=== PATIENT | male | born 1955 | race Caucasian/White ===

== ENCOUNTER 2018-05-22 17:16 | Emergency (ER) | payer OTHER ==
[2018-05-22 17:51] LABS: #Basophils 0.1 thou/uL (0.0-0.2); #Eosinphils 0.3 thou/uL (0.0-0.7); #Lymphocytes 2.8 thou/uL (1.20-3.40); #Monocytes 1.1 thou/uL (0.11-0.59); #Neutrophils 4.4 thou/uL (1.40-6.50); %Basophils 1.3 % (0.0-1.0); %Eosinophils 3.7 % (0.0-10.0); %Monocytes 12.4 % (0.0-10.0); %Neutrophils 50.5 % (42.0-75.0); Hemoglobin 14.9 g/dL (14.0-18.0); Mean Corpuscular HGB CONC 36.2 g/dL (32.0-36.0); Mean Corpuscular Volume 91.3 fL (78.0-98.0); Platelet Count 265 thou/uL (130-400); RBC Distribution Width 12.3 % (11.5-14.5); Red Blood Cell (RBC) Count 4.51 mill/uL (4.70-6.10); White Blood Cell (WBC) Count 8.7 thou/uL (4.8-10.8)
[2018-05-22] MEDS ORDERED: Thiamine HCl 200 MG/2 ML VIAL ONE (17:52)
[2018-05-22] MEDS ORDERED: Magnesium Sulfate 2 GM/100 ML BAG ONE ×2 (18:01→18:31)
--- NOTE | 2018-05-22 18:05 | CT ---
CT BRAIN WITHOUT IV CONTRAST: HISTORY: A 63-year-old male with a history of syncope. FINDINGS: There is no focal mass or midline shift. No intraaxial or extraaxial hemorrhage. There are scattere d sinus mucosal changes involving the maxillary, ethmoid, and sphenoid sinuses. The mastoids are hugo ar. IMPRESSION: Sinus mucosal disease. No significant acute process in the brain. No mass or bleed. POS: [facility]
[2018-05-22 18:11] LABS: ALT (SGPT) 39 U/L (8-55); AST (SGOT) 27 U/L (5-34); Albumin 4.4 g/dL (3.4-4.8); Alcohol 67 mg/dL (Less than 10); Alkaline Phosphatase 66 U/L (40-150); Anion Gap 17 mmol/L (10-20); BUN (Urea Nitrogen) 14 mg/dL (8.4-25.7); Bilirubin, Total 0.4 mg/dL (0.2-1.2); Calc. Creatinine Clearance 0 mL/min (70-130); Calcium 9.8 mg/dL (7.8-10.44); Carbon Dioxide 25 mmol/L (23-31); Chloride 98 mmol/L (98-107); Estimated GFR-MDRD 66; Globulin 3.2 g/dL (2.4-3.5); Glucose 81 mg/dL (80-115); Potassium 3.8 mmol/L (3.5-5.1); Protein, Total 7.6 g/dL (5.8-8.1); Sodium 136 mmol/L (136-145)
[2018-05-22 18:13] LABS: CKMB 3.8 ng/mL (0-6.6); Troponin I 0.107 ng/mL (< 0.028)
[2018-05-22] MEDS ORDERED: Enoxaparin Sodium 100 MG/ML SYRINGE ONE (18:19)
[2018-05-22] MEDS ORDERED: Lorazepam 2 MG/ML VIAL ONE (18:41)
--- NOTE | 2018-05-22 19:16 | RAD ---
CHEST ONE VIEW: HISTORY: Syncope. Ventricular tachycardia. COMPARISON: 02/09/2014 FINDINGS: Portable upright chest shows a normal cardiac silhouette. The pulmonary vessels and hilum are normal . No masses or consolidation. No pneumothorax or osseous abnormalities. IMPRESSION: No acute cardiopulmonary process. POS: [facility]
== END 2018-05-22 19:05 | disposition short-term general hospital (02) ==
LOC: BURERS 17:16
DX: I47.2 Ventricular tachycardia (principal); I45.81 Long QT syndrome; F10.10 Alcohol abuse, uncomplicated; I10 Essential (primary) hypertension; F17.200 Nicotine dependence, unspecified, uncomplicated; F41.9 Anxiety disorder, unspecified; F17.210 Nicotine dependence, cigarettes, uncomplicated; Z79.899 Other long term (current) drug therapy
CPT/HCPCS: 70450; 71045; 80053; 80307; 82553; 84484; 85025; 85379; 93005; 94760; 96365; 96366; 96367; 96372; 96375; J1650; J2060; J3411; J3475

== ENCOUNTER 2018-06-08 01:15 | Emergency (ER) | payer OTHER ==
[2018-06-08] MEDS ORDERED: Furosemide 40 MG/4 ML VIAL ONE (01:36)
[2018-06-08 01:45] LABS: #Basophils 0.2 thou/uL (0.0-0.2); #Eosinphils 0.3 thou/uL (0.0-0.7); #Lymphocytes 1.6 thou/uL (1.20-3.40); #Monocytes 1.2 thou/uL (0.11-0.59); %Basophils 1.7 % (0.0-1.0); %Lymphocytes 11.9 % (21.0-51.0); %Monocytes 9.2 % (0.0-10.0); %Neutrophils 75.1 % (42.0-75.0); Hemoglobin 10.2 g/dL (14.0-18.0); Mean Corpuscular HGB CONC 35.1 g/dL (32.0-36.0); Mean Corpuscular Hemoglobin 32.2 pg (27.0-31.0); Mean Corpuscular Volume 91.6 fL (78.0-98.0); Mean Platelet Volume 7.5 fL (7.4-10.4); Platelet Count 473 thou/uL (130-400); RBC Distribution Width 12.6 % (11.5-14.5); Red Blood Cell (RBC) Count 3.17 mill/uL (4.70-6.10); White Blood Cell (WBC) Count 13.3 thou/uL (4.8-10.8)
[2018-06-08 01:56] LABS: INR-International Normal Ratio 1.3; Prothrombin Time 16.1 SEC (12.0-14.7)
[2018-06-08 01:57] LABS: ALT (SGPT) 35 U/L (8-55); AST (SGOT) 23 U/L (5-34); Albumin 3.8 g/dL (3.4-4.8); Alkaline Phosphatase 87 U/L (40-150); Anion Gap 12 mmol/L (10-20); BUN (Urea Nitrogen) 11 mg/dL (8.4-25.7); Bilirubin, Total 0.6 mg/dL (0.2-1.2); Calc. Creatinine Clearance 0 mL/min (70-130); Calcium 9.7 mg/dL (7.8-10.44); Carbon Dioxide 27 mmol/L (23-31); Chloride 99 mmol/L (98-107); Estimated GFR-MDRD 54; Globulin 3.2 g/dL (2.4-3.5); Glucose 116 mg/dL (80-115); Potassium 4.3 mmol/L (3.5-5.1); Sodium 134 mmol/L (136-145)
[2018-06-08 01:58] LABS: Digoxin 0.45 ng/mL (0.8-2.0)
[2018-06-08 02:17] LABS: CKMB 2.2 ng/mL (0-6.6)
--- NOTE | 2018-06-08 09:10 | RAD ---
PORTABLE CHEST: DATE: 06/08/2018. FINDINGS: An AP portable film at 0107 is compared with an 05/27/2018 study done at [facility]. Moderate cardiomegaly is still present. There is perhaps minor prominence of the upper lobe pulmonar y vessels, but no jessica pulmonary edema. No lobar consolidations or large effusions were seen There might be a small effusion on the left. The patient has had a CABG. IMPRESSION: Moderate cardiomegaly. Equivocal slight prominence of upper lobe vessels. POS: [facility]
== END 2018-06-08 01:50 | disposition short-term general hospital (02) ==
LOC: BURERS 01:15
DX: I31.3 Pericardial effusion (noninflammatory) (principal); I11.0 Hypertensive heart disease with heart failure; I50.9 Heart failure, unspecified; F17.210 Nicotine dependence, cigarettes, uncomplicated; Z79.82 Long term (current) use of aspirin; Z79.899 Other long term (current) drug therapy
CPT/HCPCS: 71045; 80053; 80162; 82553; 83880; 84484; 85025; 85610; 85730; 96374; J1940

== ENCOUNTER 2018-10-08 23:27 | Emergency (ER) | payer OTHER ==
[2018-10-08] MEDS ORDERED: Ibuprofen 200 MG TAB ONE (23:50)
[2018-10-09 00:04] LABS: Bilirubin Negative (Negative); Blood, Urine Large (Negative); Clarity Cloudy (Clear); Glucose, Urine (Dipstick) Negative (Negative); Leukocyte Small (Negative); Nitrite Negative (Negative); Protein, Urine (Dipstick) > or equal to 300 mg/dL (Neg-Trace); Specific Gravity, Urine 1.025 (1.005-1.030)
[2018-10-09 00:06] LABS: Bacteria/HPF 2+ HPF (None Seen); Other Casts/LPF 0-3 FINELY GRAN LPF (0-3 Hyaline); Squamous Epithelial 0-3 HPF (0-3)
[2018-10-09] MEDS ORDERED: cefTRIAXone\\ROCEPHIN 2 GM VIAL ONE (00:21)
[2018-10-09 00:35] LABS: ALT (SGPT) 34 U/L (8-55); AST (SGOT) 31 U/L (5-34); Albumin 3.7 g/dL (3.4-4.8); Alkaline Phosphatase 108 U/L (40-150); Anion Gap 18 mmol/L (10-20); BUN (Urea Nitrogen) 12 mg/dL (8.4-25.7); Bilirubin, Total 0.9 mg/dL (0.2-1.2); Calc. Creatinine Clearance 0 mL/min (70-130); Calcium 9.6 mg/dL (7.8-10.44); Carbon Dioxide 19 mmol/L (23-31); Chloride 97 mmol/L (98-107); Estimated GFR-MDRD 72; Globulin 3.3 g/dL (2.4-3.5); Glucose 129 mg/dL (80-115); Potassium 3.9 mmol/L (3.5-5.1); Sodium 130 mmol/L (136-145)
[2018-10-09 00:56] LABS: Band 36 % (5-11); Eosinophils 1 % (0-10); Hemoglobin 13.9 g/dL (14.0-18.0); Lymphocytes 7 % (21-51); MDiff Complete? YES; Mean Corpuscular Hemoglobin 30.3 pg (27.0-31.0); Mean Corpuscular Volume 91.9 fL (78.0-98.0); Mean Platelet Volume 10.3 fL (7.4-10.4); Monocytes 4 % (0-10); Neutrophil 51 % (42-75); Platelet Count 99 thou/uL (130-400); Platelet Morphology Comment Appears Decreased; RBC Distribution Width 13.9 % (11.5-14.5); RBC Morphology Normal; Red Blood Cell (RBC) Count 4.58 mill/uL (4.70-6.10); Toxic Granulation SLIGHT; Vacuoles SLIGHT; White Blood Cell (WBC) Count 6.3 thou/uL (4.8-10.8)
[2018-10-09 07:02] LABS: Lactic Acid 0.8 mmol/L (0.5-2.2)
--- NOTE | 2018-10-09 07:14 | RAD ---
PORTABLE CHEST: Date: 10/09/18 An AP portable film at 0011 hours is compared with a 06/18/18 study. FINDINGS: Mild cardiomegaly is present, actually a heart size smaller than before. There is no vascular congest ion. There is no infiltrate or other sign of pneumonia. No effusions present. IMPRESSION: No acute thoracic findings. POS: [facility]
== END 2018-10-09 08:45 | disposition short-term general hospital (02) ==
LOC: BURERS 23:27
DX: N39.8 Other specified disorders of urinary system (principal); I10 Essential (primary) hypertension; E78.5 Hyperlipidemia, unspecified; F17.210 Nicotine dependence, cigarettes, uncomplicated; Z79.82 Long term (current) use of aspirin; Z79.899 Other long term (current) drug therapy
CPT/HCPCS: 36415; 71045; 80053; 81003; 81015; 83605; 85025; 87040; 87086; 87804; 96365; 96366; 96375; J0696; J3370

== ENCOUNTER 2019-05-13 15:23 | Outpatient (CLI) | payer OTHER ==
[2019-05-13 22:07] LABS: Bilirubin Negative (Negative); Blood, Urine 1+ (Negative); Clarity Turbid (Clear); Glucose, Urine (Dipstick) Normal (Negative); Leukocyte 500 Leu/uL (Negative); Nitrite 2+ (Negative); Protein, Urine (Dipstick) 50 mg/dL (Neg-Trace); RBC/HPF 21-50 HPF (0-3); Squamous Epithelial 0-3 HPF (0-3); Urobilinogen Normal mg/dL (Less than 2); WBC/HPF Greater than 50 HPF (0-3)
[2019-05-13 22:34] LABS: Bacteria/HPF 4+ HPF (None Seen)
--- NOTE | 2019-05-14 07:34 | ULT ---
SCROTAL ULTRASOUND: 05/13/19 Ultrasonography of the scrotum was performed. Documentary images and worksheets were provided and re viewed. The testicles both appear normal with no sign of mass or other acute pathology. Right testicle measur es 3.5 x 2.6 x 3.4 cm and the left measures 4.2 x 2.4 x 3.3 cm. Blood flow is present in each. The major finding on this study is epididymal abnormalities. The right epididymis is quite large, ext remely inhomogeneous, and almost mass-like. I suspect it is infected. It measures 2.6 x 2.5 cm. Abund ant vascular flow is present. The left epididymis is also large, measuring 2.0 x 1.5 cm. It is also i nhomogeneous but less so than the right side. A 6 mm left epididymal cyst was noted. There is no subs tantial amount of fluid in the scrotum. IMPRESSION: 1. Normal testicles. 2. Marked enlargement of each epididymis, but particularly the right. It is extraordinarily inho mogeneous and almost mass-like. Epididymitis is the most likely diagnosis. I would treat him as such and then after a prolonged course of treatment consider a follow-up ultrasound and/or urological refe rral. 3. 6 mm left epididymal cyst. POS: HOME
== END 2019-05-13 15:24 | disposition home or self-care (01) ==
LOC: BURULT 15:23
PROVIDERS: ATTEND Family Medicine
DX: N50.811 Right testicular pain (principal); N50.3 Cyst of epididymis
CPT/HCPCS: 76870; 81001; 87077; 87086; 87186; 93976

== ENCOUNTER 2023-12-05 08:42 | Emergency (ER) | payer MEDICARE, OTHER ==
[2023-12-05 09:41] LABS: #Basophils 0.2 thou/uL (0.0-0.2); #Eosinphils 0.4 thou/uL (0.0-0.7); #Lymphocytes 2.2 thou/uL (1.20-3.40); #Monocytes 1.2 thou/uL (0.11-0.59); #Neutrophils 6.7 thou/uL (1.40-6.50); %Basophils 1.7 % (0.0-1.0); %Lymphocytes 20.4 % (21.0-51.0); %Monocytes 10.9 % (0.0-10.0); Hematocrit 39.6 % (42.0-52.0); Hemoglobin 14.3 g/dL (14.0-18.0); Mean Corpuscular HGB CONC 36.1 g/dL (32.0-36.0); Mean Corpuscular Hemoglobin 33.3 pg (27.0-31.0); Mean Platelet Volume 8.3 fL (7.4-10.4); Platelet Count 268 10x3/uL (130-400); RBC Distribution Width 12.2 % (11.5-14.5); Red Blood Cell (RBC) Count 4.31 mill/uL (4.70-6.10); White Blood Cell (WBC) Count 10.7 10x3/uL (4.8-10.8)
[2023-12-05 09:46] LABS: Prothrombin Time 13.3 sec (12.0-14.7)
[2023-12-05 09:57] LABS: ALT (SGPT) 33 U/L (8-55); AST (SGOT) 53 U/L (5-34); Albumin 4.2 g/dL (3.4-4.8); Alkaline Phosphatase 54 U/L (40-110); Anion Gap 18 mmol/L (10-20); BUN (Urea Nitrogen) 14 mg/dL (8.4-25.7); Bilirubin, Total 1.3 mg/dL (0.2-1.2); Calc. Creatinine Clearance 0 mL/min (70-130); Calcium 9.4 mg/dL (7.8-10.44); Carbon Dioxide 23 mmol/L (23-31); Chloride 86 mmol/L (98-107); Estimated GFR 43; Glucose 118 mg/dL (80-115); Potassium 2.9 mmol/L (3.5-5.1); Protein, Total 7.2 g/dL (5.8-8.1); Sodium 124 mmol/L (136-145)
[2023-12-05 10:04] LABS: Troponin I 0.036 ng/mL (< 0.028)
[2023-12-05] MEDS ORDERED: Potassium Chloride 20 MEQ TAB ONE (10:08)
[2023-12-05] MEDS ORDERED: Aspirin Chewable 81 MG TAB ONE (10:08)
[2023-12-05 10:18] LABS: Magnesium 1.5 mg/dL (1.6-2.6)
[2023-12-05] MEDS ORDERED: Magnesium Oxide 400 MG TAB ONE (10:31)
== END 2023-12-05 13:32 ==
LOC: BURERS 08:42
DX: R55 Syncope and collapse (principal); R94.31 Abnormal electrocardiogram [ECG] [EKG]; E87.6 Hypokalemia; E87.1 Hypo-osmolality and hyponatremia; I10 Essential (primary) hypertension; I25.10 Atherosclerotic heart disease of native coronary artery without angina pectoris; J44.9 Chronic obstructive pulmonary disease, unspecified; F17.210 Nicotine dependence, cigarettes, uncomplicated; E78.5 Hyperlipidemia, unspecified; W17.89XA Other fall from one level to another, initial encounter; Y93.89 Activity, other specified; Y92.239 Unspecified place in hospital as the place of occurrence of the external cause; Z79.82 Long term (current) use of aspirin; Z79.899 Other long term (current) drug therapy
CPT/HCPCS: 71045; 83735; 83880; 84484; 85610; 93005

== ENCOUNTER 2023-12-28 09:59 | Emergency (ER) | payer MEDICARE, OTHER ==
[2023-12-28 10:34] LABS: #Basophils 0.2 thou/uL (0.0-0.2); #Eosinphils 0.2 thou/uL (0.0-0.7); #Lymphocytes 1.9 thou/uL (1.20-3.40); #Monocytes 1.1 thou/uL (0.11-0.59); #Neutrophils 5.4 thou/uL (1.40-6.50); %Basophils 2.3 % (0.0-1.0); %Eosinophils 2.7 % (0.0-10.0); %Lymphocytes 21.8 % (21.0-51.0); %Monocytes 12.5 % (0.0-10.0); %Neutrophils 60.7 % (42.0-75.0); Hemoglobin 12.5 g/dL (14.0-18.0); Mean Corpuscular HGB CONC 35.9 g/dL (32.0-36.0); Mean Corpuscular Hemoglobin 33.3 pg (27.0-31.0); Mean Corpuscular Volume 92.8 fl (78.0-98.0); Mean Platelet Volume 8.3 fL (7.4-10.4); Platelet Count 221 10x3/uL (130-400); RBC Distribution Width 12.7 % (11.5-14.5); Red Blood Cell (RBC) Count 3.77 mill/uL (4.70-6.10); White Blood Cell (WBC) Count 8.9 10x3/uL (4.8-10.8)
[2023-12-28 10:47] LABS: ALT (SGPT) 25 U/L (8-55); AST (SGOT) 33 U/L (5-34); Alkaline Phosphatase 43 U/L (40-110); Anion Gap 16 mmol/L (10-20); BUN (Urea Nitrogen) 11 mg/dL (8.4-25.7); Bilirubin, Total 1.2 mg/dL (0.2-1.2); Calc. Creatinine Clearance 0 mL/min (70-130); Calcium 9.6 mg/dL (7.8-10.44); Carbon Dioxide 22 mmol/L (23-31); Chloride 93 mmol/L (98-107); Estimated GFR 58; Glucose 103 mg/dL (80-115); Potassium 3.4 mmol/L (3.5-5.1); Sodium 128 mmol/L (136-145)
[2023-12-28 10:48] LABS: Troponin I 0.035 ng/mL (< 0.028)
[2023-12-28 11:03] LABS: Magnesium 1.8 mg/dL (1.6-2.6)
[2023-12-28 12:56] LABS: Bilirubin Negative (Negative); Blood, Urine Negative (Negative); Clarity Clear (Clear); Glucose, Urine (Dipstick) Negative (Negative); Ketone, Urine Negative (Negative); Leukocyte Negative (Negative); Nitrite Negative (Negative); Protein, Urine (Dipstick) Negative (Neg-Trace); Specific Gravity, Urine 1.015 (1.005-1.030)
[2023-12-28 13:02] LABS: Bacteria/HPF Rare-Few HPF (None Seen); CAUTI Indications for Culture Dysuria,urgency,freq; RBC/HPF None Seen HPF (0-3); Squamous Epithelial 0-3 HPF (0-3); Urine Culture Reflex No No; WBC/HPF 0-3 HPF (0-3)
[2023-12-28 13:59] LABS: Troponin I 0.025 ng/mL (< 0.028)
== END 2023-12-28 14:24 | disposition home or self-care (01) ==
LOC: BURERS 09:59
DX: J44.9 Chronic obstructive pulmonary disease, unspecified (principal); E87.6 Hypokalemia; F03.90 Unspecified dementia, unspecified severity, without behavioral disturbance, psychotic disturbance, mood disturbance, and anxiety; I11.0 Hypertensive heart disease with heart failure; I50.9 Heart failure, unspecified; E78.5 Hyperlipidemia, unspecified; N40.0 Benign prostatic hyperplasia without lower urinary tract symptoms; F32.9 Major depressive disorder, single episode, unspecified; F10.10 Alcohol abuse, uncomplicated; I25.10 Atherosclerotic heart disease of native coronary artery without angina pectoris; F17.210 Nicotine dependence, cigarettes, uncomplicated; Z79.82 Long term (current) use of aspirin; Z79.899 Other long term (current) drug therapy
CPT/HCPCS: 36415; 71045; 80053; 81001; 83735; 83880; 84484; 85025; 93005; 96360; 96361